=== PATIENT | female | born 1965 | race Caucasian/White ===

== ENCOUNTER → 2016-08-21 | Outpatient (CLI) | payer BC ==
[~2016-08-21] MED LIST: AMITRIPTYLINE50 MG PO; AZURETTE1 TAB PO; BUPROPION HCL150 M2 PO; CELEXA40 MG PO; CLINDAMYCIN300 MG PO; CYMBALTA 60MG60 MG PO; DURAGESIC25 MCG/HR TD; ETODOLAC400 MG PO; FENTANYL TR25 MCG/HR TD; FLONASE NASAL S16 GM NS; GABAPENTIN300 MG PO; LEVOTHYROXINE0.05 MG PO; LEVOXYL0.05 MG PO; LYRICA200 MG PO; NORCO 325 MG-51 TAB PO; SEROQUEL50 MG PO; ZOCOR 40MG40 MG PO
== END ==
LOC: BHSO 08:33
DX: F06.32 Mood disorder due to known physiological condition with major depressive-like episode (principal)

== ENCOUNTER → 2016-09-25 | Outpatient (CLI) | payer BC | LOC: BHSO 08:40 | DX: F33.41 Major depressive disorder, recurrent, in partial remission (principal) ==

== ENCOUNTER → 2016-11-22 | Outpatient (CLI) | payer BC | LOC: BHSO 08:32 | DX: F06.32 Mood disorder due to known physiological condition with major depressive-like episode (principal) ==

== ENCOUNTER → 2016-12-06 | Outpatient (CLI) | payer BC | LOC: MC.RAD 08:12 | DX: Z12.31 Encounter for screening mammogram for malignant neoplasm of breast (principal) ==

== ENCOUNTER → 2017-02-18 | Outpatient (CLI) | payer BC | LOC: BHSO 08:31 | DX: F06.32 Mood disorder due to known physiological condition with major depressive-like episode (principal) ==

== ENCOUNTER → 2017-04-01 | Outpatient (CLI) | payer BC | LOC: BHSO 08:13 | DX: F06.32 Mood disorder due to known physiological condition with major depressive-like episode (principal) ==

== ENCOUNTER → 2017-05-02 | Outpatient (CLI) | payer BC | LOC: BHSO 08:09 | DX: F06.32 Mood disorder due to known physiological condition with major depressive-like episode (principal) ==

== ENCOUNTER → 2017-05-09 | Outpatient (CLI) | payer BC | LOC: BHSO 08:39 | DX: F33.1 Major depressive disorder, recurrent, moderate (principal) ==

== ENCOUNTER → 2017-06-13 | Outpatient (CLI) | payer BC | LOC: BHSO 09:46 | DX: F33.2 Major depressive disorder, recurrent severe without psychotic features (principal) ==

== ENCOUNTER → 2017-06-27 | Outpatient (CLI) | payer BC | LOC: BHSO 08:10 | DX: F06.32 Mood disorder due to known physiological condition with major depressive-like episode (principal) ==

== ENCOUNTER → 2017-07-11 | Outpatient (CLI) | payer BC | LOC: BHSO 09:40 | DX: F33.2 Major depressive disorder, recurrent severe without psychotic features (principal) ==

== ENCOUNTER → 2017-07-25 | Outpatient (CLI) | payer BC | LOC: BHSO 09:39 | DX: F33.1 Major depressive disorder, recurrent, moderate (principal) ==

== ENCOUNTER → 2017-08-08 | Outpatient (CLI) | payer BC | LOC: BHSO 09:41 | DX: F33.2 Major depressive disorder, recurrent severe without psychotic features (principal) ==

== ENCOUNTER → 2017-08-29 | Outpatient (CLI) | payer BC | LOC: BHSO 08:38 | DX: F33.1 Major depressive disorder, recurrent, moderate (principal) ==

== ENCOUNTER → 2017-09-12 | Outpatient (CLI) | payer BC | LOC: BHSO 08:43 | DX: F41.1 Generalized anxiety disorder (principal) ==

== ENCOUNTER → 2017-09-26 | Outpatient (CLI) | payer BC | LOC: BHSO 08:29 | DX: F06.32 Mood disorder due to known physiological condition with major depressive-like episode (principal) | CPT/HCPCS: G0463 ==

== ENCOUNTER → 2017-10-10 | Outpatient (CLI) | payer BC | LOC: BHSO 08:46 | DX: F33.1 Major depressive disorder, recurrent, moderate (principal) ==

== ENCOUNTER → 2017-11-04 | Outpatient (CLI) | payer BC | LOC: BHSO 08:42 | DX: F33.1 Major depressive disorder, recurrent, moderate (principal) ==

== ENCOUNTER → 2017-11-28 | Outpatient (CLI) | payer BC | LOC: BHSO 09:50 | DX: F33.1 Major depressive disorder, recurrent, moderate (principal) ==

== ENCOUNTER → 2017-12-31 | Outpatient (CLI) | payer BC | LOC: BHSO 08:41 | DX: F33.1 Major depressive disorder, recurrent, moderate (principal) ==

== ENCOUNTER → 2018-01-13 | Outpatient (CLI) | payer BC | LOC: BHSO 09:09 | DX: F06.32 Mood disorder due to known physiological condition with major depressive-like episode (principal) | CPT/HCPCS: G0463 ==

== ENCOUNTER → 2018-01-23 | Outpatient (CLI) | payer BC | LOC: BHSO 08:42 | DX: F33.1 Major depressive disorder, recurrent, moderate (principal) ==

== ENCOUNTER 2018-02-17 09:30 | Inpatient (IN) | payer BC ==
[~2018-02-17] VITALS: Ht 162.6 cm; Wt 73.7 kg
[2018-02-17 09:53] LABS: HEMATOCRIT 37.9 % (37.0-47.0); HEMOGLOBIN 13.6 g/dl (12.5-16.0); MEAN CELL VOLUME 88 fl (80.0-100.0); MEAN CORPUSCULAR HEMOGLOBIN 32 pg (27.0-31.0); MEAN CORPUSCULAR HGB CONC 36 g/dl (33.0-37.0); MEAN PLATELET VOLUME 11.4 fl (7.4-10.4); PLATELET COUNT 224 K/mm3 (130-400); RED BLOOD COUNT 4.29 M/mm3 (4.10-5.30); REDCELL DISTRIBUTION WIDTH-CV 13.6 % (11.5-14.5)
[2018-02-17 10:08] LABS: ALBUMIN 4.1 gm/dL (3.5-5.0); BILIRUBIN,TOTAL 1.2 mg/dL (0.0-1.0); CALCIUM 9.4 mg/dL (8.4-10.2); CREATININE, serum 0.96 mg/dL (0.52-1.25); POTASSIUM 3.4 mmol/L (3.4-5.0); TOTAL PROTEIN 7.7 gm/dL (6.4-8.2)
[2018-02-17 10:11] LABS: BAND 13 % (0-10); LYMPHOCYTE 8 % (20.0-51.0); METAMYELOCYTE 1 % (0-0); NEUTROPHILS 72 % (42.0-75.2)
[2018-02-17 10:13] LABS: PLATELET ESTIMATE NORMAL (NORMAL)
[2018-02-17 10:24] LABS: C-REACTIVE PROTEIN 23.4 mg/dL (0.0-0.9)
[2018-02-17 11:35] LABS: COLLECTION METHOD CLEAN CATCH
[2018-02-17 11:46] LABS: BUDDING YEAST Present /hpf; MUCOUS Present /lpf; PH 5 (5-8); SQUAMOUS EPITHELIAL 0-2 /hpf; URINE APPEARANCE Cloudy; URINE BACTERIA None Seen /hpf; URINE BILIRUBIN Positive (NEGATIVE); URINE BLOOD 2+ (NEGATIVE); URINE COLOR Yellow; URINE GLUCOSE Negative (NEGATIVE); URINE KETONE Negative (NEGATIVE); URINE LEUKOCYTE ESTERASE 3+ (NEGATIVE); URINE NITRATE Positive (NEGATIVE); URINE PROTEIN(semi-quant) 2+ (NEGATIVE); URINE RBC >50 /hpf; URINE UROBILINOGEN >=4.0 mg/dL (NEGATIVE)
[2018-02-17 14:06] VITALS: BP 126/58; PULSE 95; TEMP 101.8
[2018-02-17] MEDS ORDERED: CYMBALTA 30MG30 MG PO (15:05)
[2018-02-17] MEDS ORDERED: [UNRECOGNIZED DRUG - OTHER] ×2 (15:05→15:06)
[2018-02-17] MEDS ORDERED: VIORELE 0.15 MG1 TAB PO (15:05)
[2018-02-17] MEDS ORDERED: DEXILANT60 MG PO (15:08)
[2018-02-17] MEDS ORDERED: LODINE400 MG (15:10)
[2018-02-17] MEDS ORDERED: DESYREL 100MG100 MG PO (15:10)
[2018-02-17] MEDS ORDERED: NEURONTIN300 MG/CAP PO (15:11)
[2018-02-17 16:40] VITALS: BP 100/65; PULSE 95; TEMP 98.6
[2018-02-17 19:13] VITALS: BP 111/65; PULSE 96; TEMP 98.5
[2018-02-17 23:45] VITALS: BP 86/57; PULSE 85; TEMP 99
[2018-02-18 06:13] VITALS: BP 114/87; TEMP 100.3
[2018-02-18 06:21] LABS: MEAN CELL VOLUME 89 fl (80.0-100.0); MEAN CORPUSCULAR HGB CONC 36 g/dl (33.0-37.0); MEAN PLATELET VOLUME 11.6 fl (7.4-10.4); PLATELET COUNT 143 K/mm3 (130-400); RED BLOOD COUNT 3.24 M/mm3 (4.10-5.30); REDCELL DISTRIBUTION WIDTH-CV 13.8 % (11.5-14.5)
[2018-02-18 06:22] LABS: HEMATOCRIT 28.9 % (37.0-47.0); HEMOGLOBIN 10.3 g/dl (12.5-16.0); MEAN CORPUSCULAR HEMOGLOBIN 32 pg (27.0-31.0)
[2018-02-18 06:33] LABS: CALCIUM 7.7 mg/dL (8.4-10.2); CREATININE, serum 0.95 mg/dL (0.52-1.25); POTASSIUM 3.2 mmol/L (3.4-5.0)
[2018-02-18 07:02] LABS: BAND 30 % (0-10); LYMPHOCYTE 5 % (20.0-51.0); NEUTROPHILS 63 % (42.0-75.2); PLATELET ESTIMATE NORMAL (NORMAL)
[2018-02-18 13:00] VITALS: BP 112/80; PULSE 89; TEMP 98.9
[2018-02-18 17:15] VITALS: BP 119/72; PULSE 95; TEMP 101.1
[2018-02-18 19:33] VITALS: BP 112/91; PULSE 82; TEMP 98.6
[2018-02-18 23:57] VITALS: BP 128/88; PULSE 93; TEMP 99.3
[2018-02-19 04:39] VITALS: BP 137/77; PULSE 91; TEMP 99.3
[2018-02-19 07:20] LABS: BASO % 0.2 % (0.0-2.0); EOS % 0.2 % (0-4.0); GRAN # 11.5 (1.4-6.5); GRAN % 86.2 % (42.2-75.2); HEMOGLOBIN 10.6 g/dl (12.5-16.0); LYMPH # 0.8 (1.2-3.4); LYMPH % 5.9 % (20.0-51.0); MEAN CELL VOLUME 91 fl (80.0-100.0); MEAN CORPUSCULAR HEMOGLOBIN 31 pg (27.0-31.0); MEAN CORPUSCULAR HGB CONC 34 g/dl (33.0-37.0); MEAN PLATELET VOLUME 11.7 fl (7.4-10.4); MONO # 0.9 (0.1-0.6); PLATELET COUNT 140 K/mm3 (130-400); RED BLOOD COUNT 3.44 M/mm3 (4.10-5.30)
[2018-02-19 07:21] LABS: HEMATOCRIT 31.3 % (37.0-47.0)
[2018-02-19 07:30] LABS: CALCIUM 7.8 mg/dL (8.4-10.2); CREATININE, serum 0.95 mg/dL (0.52-1.25); MAGNESIUM 1.8 mg/dL (1.6-2.3); POTASSIUM 3.6 mmol/L (3.4-5.0)
[2018-02-19 08:02] VITALS: BP 133/84; PULSE 82; TEMP 99.9
[2018-02-19 11:50] VITALS: BP 116/76; PULSE 84; TEMP 99.8
[2018-02-19 15:54] VITALS: BP 132/71; PULSE 77; TEMP 99.9
[2018-02-19 19:53] VITALS: BP 134/95; PULSE 97; TEMP 99.6
[2018-02-20] VITALS (7 sets, daily range): BP systolic 107–138; BP diastolic 57–91; PULSE 68–87; TEMP 98.2–100.2
[2018-02-20 07:45] LABS: BASO % 0.4 % (0.0-2.0); EOS # 0.1 (0.0-0.7); EOS % 0.5 % (0-4.0); GRAN # 8.7 (1.4-6.5); GRAN % 78.4 % (42.2-75.2); LYMPH # 1.1 (1.2-3.4); MEAN CELL VOLUME 90 fl (80.0-100.0); MEAN CORPUSCULAR HGB CONC 35 g/dl (33.0-37.0); MEAN PLATELET VOLUME 11.8 fl (7.4-10.4); MONO # 1.1 (0.1-0.6); MONO % 9.8 % (1.7-9.3); PLATELET COUNT 179 K/mm3 (130-400); RED BLOOD COUNT 3.17 M/mm3 (4.10-5.30); REDCELL DISTRIBUTION WIDTH-CV 14.3 % (11.5-14.5)
[2018-02-20 07:48] LABS: HEMATOCRIT 28.6 % (37.0-47.0); HEMOGLOBIN 9.9 g/dl (12.5-16.0); MEAN CORPUSCULAR HEMOGLOBIN 31 pg (27.0-31.0)
[2018-02-21 04:05] VITALS: BP 147/83; PULSE 77; TEMP 99.8
[2018-02-21 08:03] LABS: BASO # 0.1 (0.0-0.2); BASO % 0.5 % (0.0-2.0); EOS # 0.2 (0.0-0.7); EOS % 1.7 % (0-4.0); GRAN # 7.1 (1.4-6.5); GRAN % 69.9 % (42.2-75.2); LYMPH # 1.3 (1.2-3.4); LYMPH % 13.1 % (20.0-51.0); MEAN CELL VOLUME 93 fl (80.0-100.0); MEAN CORPUSCULAR HGB CONC 34 g/dl (33.0-37.0); MEAN PLATELET VOLUME 11.5 fl (7.4-10.4); MONO # 1.4 (0.1-0.6); MONO % 13.4 % (1.7-9.3); PLATELET COUNT 211 K/mm3 (130-400); RED BLOOD COUNT 3.12 M/mm3 (4.10-5.30); REDCELL DISTRIBUTION WIDTH-CV 14.6 % (11.5-14.5)
[2018-02-21 08:06] LABS: HEMATOCRIT 28.9 % (37.0-47.0); HEMOGLOBIN 9.7 g/dl (12.5-16.0); MEAN CORPUSCULAR HEMOGLOBIN 31 pg (27.0-31.0)
[2018-02-21 08:47] VITALS: BP 129/102; PULSE 70; TEMP 99
[2018-02-21 13:03] VITALS: BP 107/76; PULSE 83; TEMP 98.3
[2018-02-21 16:33] VITALS: BP 125/82; PULSE 75; TEMP 99.2
[2018-02-21 19:26] VITALS: BP 128/92; PULSE 74; TEMP 99.4
[2018-02-21 23:40] VITALS: BP 130/88; PULSE 80; TEMP 99.5
[2018-02-22 04:26] VITALS: BP 122/77; PULSE 71; TEMP 98.9
[2018-02-22 06:17] LABS: MEAN CELL VOLUME 93 fl (80.0-100.0); MEAN CORPUSCULAR HGB CONC 33 g/dl (33.0-37.0); MEAN PLATELET VOLUME 11.4 fl (7.4-10.4); PLATELET COUNT 258 K/mm3 (130-400); RED BLOOD COUNT 3.03 M/mm3 (4.10-5.30); REDCELL DISTRIBUTION WIDTH-CV 14.6 % (11.5-14.5)
[2018-02-22 06:18] LABS: HEMATOCRIT 28.2 % (37.0-47.0); HEMOGLOBIN 9.3 g/dl (12.5-16.0); MEAN CORPUSCULAR HEMOGLOBIN 31 pg (27.0-31.0)
[2018-02-22 06:29] LABS: CALCIUM 8.3 mg/dL (8.4-10.2); CREATININE, serum 0.9 mg/dL (0.52-1.25); POTASSIUM 3.8 mmol/L (3.4-5.0)
[2018-02-22 07:25] VITALS: BP 132/84; PULSE 75; TEMP 98.4
[2018-02-22 11:38] VITALS: BP 136/72; PULSE 68; TEMP 98.6
[2018-02-22 16:08] VITALS: BP 125/89; PULSE 64; TEMP 98.4
[2018-02-22 20:01] VITALS: BP 134/78; PULSE 66; TEMP 98.8
[2018-02-23 00:02] VITALS: BP 130/68; PULSE 70; TEMP 98.6
[2018-02-23 04:28] VITALS: BP 122/60; PULSE 68; TEMP 98.2
[2018-02-23 08:27] VITALS: BP 149/86; PULSE 94; TEMP 97.9
[2018-02-23 11:40] VITALS: BP 128/60; PULSE 105; TEMP 97.9
[2018-02-23] MEDS ORDERED: NS INT FLUSH 1010 ML IV (13:27)
[2018-02-23] MEDS ORDERED: INVANZ INJ1 G/VIAL IV (13:27)
[2018-02-24] MEDS ORDERED: SYNTHROID0.1 MG/TAB PO (15:40)
== END 2018-02-23 18:19 | disposition home or self-care (01) | DRG 872 ==
LOC: COL.ER 09:30 → MEDICAL 12:45
PROVIDERS: Internal Medicine; Physician Assistant
PROC: 02HV33Z Insertion of Infusion Device into Superior Vena Cava, Percutaneous Approach (ICD-10-PCS; principal; 2018-02-23)
DX: A41.51 Sepsis due to Escherichia coli [E. coli] (principal); N10 Acute pyelonephritis; B96.20 Unspecified Escherichia coli [E. coli] as the cause of diseases classified elsewhere; M79.7 Fibromyalgia; G89.29 Other chronic pain; E87.6 Hypokalemia
CPT/HCPCS: 99232-AI; 99233-AI; 99239; C1751; J0696; J0780; J1335; J1650; J1885; J2060; J2185; J2270; J2405; J7030; Q9967

== ENCOUNTER 2018-02-28 13:50 | Outpatient (RCR) | payer BC ==
[2018-02-24 15:45] VITALS: BP 133/84; PULSE 72; TEMP 97.8
[2018-02-25 14:00] VITALS: BP 119/79; PULSE 71; TEMP 97.5
[2018-02-26 13:54] VITALS: BP 100/64; PULSE 71; TEMP 97.5
[2018-02-27 14:06] VITALS: BP 106/69; PULSE 74; TEMP 97.4
[~2018-02-28] VITALS: Ht 162.6 cm; Wt 75.0 kg
[~2018-02-28 13:50] MED LIST changes: +CYMBALTA 30MG30 MG PO; +DESYREL 100MG100 MG PO; +DEXILANT60 MG PO; +INVANZ INJ1 G/VIAL IV; +LODINE400 MG; +NEURONTIN300 MG/CAP PO; +NS INT FLUSH 1010 ML IV; +SYNTHROID0.1 MG/TAB PO; +VIORELE 0.15 MG1 TAB PO; +[UNRECOGNIZED DRUG - OTHER]
[2018-03-02 13:50] VITALS: BP 125/72; PULSE 80; TEMP 98
[2018-03-03 14:03] VITALS: BP 95/59; PULSE 77; TEMP 98.4
[2018-03-04 13:48] VITALS: BP 105/61; PULSE 79; TEMP 97.6
[2018-03-05 14:17] VITALS: BP 98/71; PULSE 73; TEMP 98
[2018-03-06 14:00] VITALS: BP 115/98; PULSE 74; TEMP 97.8
[2018-03-09 13:51] VITALS: BP 110/74; PULSE 69; TEMP 98.8
== END 2018-03-09 14:51 | disposition home or self-care (01) ==
LOC: EUO 14:00
DX: Z45.2 Encounter for adjustment and management of vascular access device (principal); Z95.9 Presence of cardiac and vascular implant and graft, unspecified
CPT/HCPCS: J1335

== ENCOUNTER → 2018-03-20 | Outpatient (CLI) | payer BC | LOC: BHSO 08:29 | DX: F06.32 Mood disorder due to known physiological condition with major depressive-like episode (principal) | CPT/HCPCS: G0463 ==

== ENCOUNTER → 2018-05-06 | Outpatient (CLI) | payer BC, OTHER | LOC: MHCPAIN 12:19 | DX: G89.29 Other chronic pain (principal); M47.817 Spondylosis without myelopathy or radiculopathy, lumbosacral region; M54.16 Radiculopathy, lumbar region; M53.3 Sacrococcygeal disorders, not elsewhere classified; M41.9 Scoliosis, unspecified | CPT/HCPCS: G0463 ==

== ENCOUNTER → 2018-05-14 | Outpatient (CLI) | payer BC, OTHER | LOC: MHCPAIN 09:25 | DX: M47.817 Spondylosis without myelopathy or radiculopathy, lumbosacral region (principal); M54.16 Radiculopathy, lumbar region | CPT/HCPCS: J1040; Q9967 ==

== ENCOUNTER → 2018-05-25 | Outpatient (CLI) | payer BC, OTHER | LOC: MHCPAIN 08:48 | DX: G89.29 Other chronic pain (principal); M47.817 Spondylosis without myelopathy or radiculopathy, lumbosacral region; M54.16 Radiculopathy, lumbar region; M53.3 Sacrococcygeal disorders, not elsewhere classified; M41.9 Scoliosis, unspecified | CPT/HCPCS: G0463 ==

== ENCOUNTER → 2018-06-26 | Outpatient (CLI) | payer BC, OTHER | LOC: BHSO 08:48 | DX: F06.32 Mood disorder due to known physiological condition with major depressive-like episode (principal) | CPT/HCPCS: G0463 ==

== ENCOUNTER → 2018-08-24 | Outpatient (CLI) | payer BC, OTHER | LOC: MHCPAIN 08:45 | DX: G89.29 Other chronic pain (principal); M47.817 Spondylosis without myelopathy or radiculopathy, lumbosacral region; M54.16 Radiculopathy, lumbar region; M53.3 Sacrococcygeal disorders, not elsewhere classified; M41.9 Scoliosis, unspecified | CPT/HCPCS: G0463 ==

== ENCOUNTER → 2018-08-27 | Outpatient (CLI) | payer BC, OTHER | LOC: MHCPAIN 08:43 | DX: M47.817 Spondylosis without myelopathy or radiculopathy, lumbosacral region (principal); M54.16 Radiculopathy, lumbar region | CPT/HCPCS: J1100; Q9967 ==

== ENCOUNTER → 2018-10-15 | Outpatient (CLI) | payer BC, OTHER | LOC: BHSO 08:40 | DX: F06.32 Mood disorder due to known physiological condition with major depressive-like episode (principal) | CPT/HCPCS: G0463 ==

== ENCOUNTER → 2018-11-23 | Outpatient (CLI) | payer BC, OTHER | LOC: MHCPAIN 09:23 | DX: G89.29 Other chronic pain (principal); M47.817 Spondylosis without myelopathy or radiculopathy, lumbosacral region; M54.16 Radiculopathy, lumbar region; M53.3 Sacrococcygeal disorders, not elsewhere classified; M41.9 Scoliosis, unspecified | CPT/HCPCS: G0463 ==

== ENCOUNTER → 2018-11-26 | Outpatient (CLI) | payer BC, OTHER | LOC: MHCPAIN 10:50 | DX: M47.817 Spondylosis without myelopathy or radiculopathy, lumbosacral region (principal); M54.16 Radiculopathy, lumbar region | CPT/HCPCS: J1100; Q9967 ==

== ENCOUNTER → 2018-12-07 | Outpatient (CLI) | payer BC | LOC: MC.RAD 10:58 | DX: Z12.31 Encounter for screening mammogram for malignant neoplasm of breast (principal) ==

== ENCOUNTER → 2018-12-08 | Outpatient (CLI) | payer BC | LOC: MHCPAIN 08:05 | DX: G89.29 Other chronic pain (principal); M47.817 Spondylosis without myelopathy or radiculopathy, lumbosacral region; M54.16 Radiculopathy, lumbar region; M53.3 Sacrococcygeal disorders, not elsewhere classified; M41.9 Scoliosis, unspecified | CPT/HCPCS: G0463 ==

== ENCOUNTER → 2018-12-14 | Outpatient (CLI) | payer BC | LOC: MHCPAIN 10:45 | DX: M47.817 Spondylosis without myelopathy or radiculopathy, lumbosacral region (principal); M54.16 Radiculopathy, lumbar region | CPT/HCPCS: J1040; Q9967 ==

== ENCOUNTER → 2019-03-30 | Outpatient (CLI) | payer BC | LOC: MHCPAIN 08:44 | DX: G89.29 Other chronic pain (principal); M47.817 Spondylosis without myelopathy or radiculopathy, lumbosacral region; M54.16 Radiculopathy, lumbar region; M53.3 Sacrococcygeal disorders, not elsewhere classified | CPT/HCPCS: G0463 ==

== ENCOUNTER → 2019-04-08 | Outpatient (CLI) | payer BC | LOC: MHCPAIN 10:15 | DX: M47.817 Spondylosis without myelopathy or radiculopathy, lumbosacral region (principal); M54.16 Radiculopathy, lumbar region | CPT/HCPCS: J1100; Q9967 ==

== ENCOUNTER → 2019-04-16 | Outpatient (CLI) | payer BC | LOC: BHSO 08:10 | DX: F06.32 Mood disorder due to known physiological condition with major depressive-like episode (principal) | CPT/HCPCS: G0463 ==

== ENCOUNTER → 2019-07-27 | Outpatient (CLI) | payer BC | LOC: MHCPAIN 12:56 | DX: M47.817 Spondylosis without myelopathy or radiculopathy, lumbosacral region (principal); M54.16 Radiculopathy, lumbar region | CPT/HCPCS: G0463 ==

== ENCOUNTER → 2019-08-12 | Outpatient (CLI) | payer BC | LOC: MHCPAIN 13:46 | DX: M51.37 Other intervertebral disc degeneration, lumbosacral region (principal); M54.17 Radiculopathy, lumbosacral region ==

== ENCOUNTER → 2019-08-25 | Outpatient (CLI) | payer BC | LOC: MHCPAIN 07:44 | DX: G89.29 Other chronic pain (principal); M53.3 Sacrococcygeal disorders, not elsewhere classified | CPT/HCPCS: G0463 ==

== ENCOUNTER → 2019-08-26 | Outpatient (CLI) | payer BC | LOC: MHCPAIN 13:58 | DX: M51.37 Other intervertebral disc degeneration, lumbosacral region (principal); M54.5 Low back pain ==

== ENCOUNTER → 2019-09-07 | Outpatient (CLI) | payer BC | LOC: MHCPAIN 13:44 | DX: M47.817 Spondylosis without myelopathy or radiculopathy, lumbosacral region (principal); M53.3 Sacrococcygeal disorders, not elsewhere classified | CPT/HCPCS: G0463 ==

== ENCOUNTER → 2019-09-23 | Outpatient (CLI) | payer BC | LOC: MHCPAIN 13:13 | DX: M54.5 Low back pain (principal) | CPT/HCPCS: J1100; J2250; J3010 ==

== ENCOUNTER → 2019-10-15 | Outpatient (CLI) | payer BC | LOC: BHSO 08:12 | DX: F06.32 Mood disorder due to known physiological condition with major depressive-like episode (principal) | CPT/HCPCS: G0463 ==

== ENCOUNTER → 2020-01-12 | Outpatient (CLI) | payer BC | LOC: MHCPAIN 09:29 | DX: M47.817 Spondylosis without myelopathy or radiculopathy, lumbosacral region (principal); M54.5 Low back pain; M53.3 Sacrococcygeal disorders, not elsewhere classified; M54.16 Radiculopathy, lumbar region; G89.29 Other chronic pain | CPT/HCPCS: G0463 ==

== ENCOUNTER → 2020-04-12 | Outpatient (CLI) | payer BC | LOC: MHCPAIN 08:47 | DX: M47.817 Spondylosis without myelopathy or radiculopathy, lumbosacral region (principal); M54.5 Low back pain; G89.29 Other chronic pain; M54.16 Radiculopathy, lumbar region | CPT/HCPCS: G0463 ==

== ENCOUNTER → 2020-04-13 | Outpatient (CLI) | payer BC | LOC: MHCPAIN 13:59 | DX: M47.817 Spondylosis without myelopathy or radiculopathy, lumbosacral region (principal); M54.16 Radiculopathy, lumbar region | CPT/HCPCS: J1100; Q9967 ==

== ENCOUNTER → 2020-04-21 | Outpatient (CLI) | payer BC | LOC: BHSO 08:51 | DX: F06.32 Mood disorder due to known physiological condition with major depressive-like episode (principal) | CPT/HCPCS: G0463 ==

== ENCOUNTER 2020-12-28 07:12 | Day surgery (SDC) | payer BC ==
[~2020-12-28] VITALS: Ht 157.5 cm; Wt 82.3 kg
[~2020-12-28 07:12] MED LIST changes: -ETODOLAC400 MG PO; +LODINE400 MG PO
[2020-12-28 07:36] VITALS: BP 107/78; PULSE 80; TEMP 98.1
[2020-12-28] MEDS ORDERED: NEURONTIN800 MG/TAB PO (07:59)
[2020-12-28] MEDS ORDERED: LAMICTAL 25MG T25 MG PO (07:59)
[2020-12-28] MEDS ORDERED: SYNTHROID0.125 MG/T PO (08:00)
[2020-12-28 09:15] VITALS: BP 111/81; PULSE 73; TEMP 97.5
[2020-12-28 09:30] VITALS: BP 112/96; PULSE 67
[2020-12-28 09:45] VITALS: BP 112/89; PULSE 68
--- NOTE | 2020-12-28 10:35 | NUR ---
PT RETURNED TO [facility] PER CART. PT WAS AWAKE AND ORIENTED. DENIES PAIN OR NAUSEA AT THIS TIME. LUNGS CLEAR AND DIMINISHED, DENIES SHORTNESS OF BREATH. HRR, BOWEL SHOUNDS PRESENT AND HYPOACTIVE. REQUEST BLUEBERRY MUFFINA WITH BUTTER AND COFFEE WITH CREAMER. IVF FLOWING PATENT INTO RIGHT HAND AND WAS PATENT. WILL CONT TO MONITOR PROGRESS.
--- NOTE | 2020-12-28 10:39 | NUR ---
PT TOLERATING FOOD AND FLUIDS WITHOUT DIFFICULTY AND/OR NAUSEA. TEN HARRIS CALLED THE NURSES STATION TO CHECK ON THE PATIENT AND REQUSTED THAT WE CALL HIM WHEN SHE IS READY. WILL CONT TO MONITOR AND PREPARE FOR DISCHARGE.
--- NOTE | 2020-12-28 10:41 | NUR ---
PT IS ALERT AND ORIENTATED, WENT OVER DISCHARGE INSTRUCTIONS WITH HER. PT DENIES QUESTIONS. IV WAS DC'D WITHOUT DIFFICULTY. PT CALLED HER BOYFRIEND, TEN TO PICK HER UP. PT SIGNED DISMISSAL INSTRUCTIONS AND WAS TAKEN BY WC TO THE THE PATIENT ENTRANCE. PT DISCHARGED TO [facility]ENKathrine, TEN'S VEHICLE. TEN WAS DRIVING THE CAR.
== END 2020-12-28 10:05 | disposition home or self-care (01) ==
LOC: SDCO 07:12
DX: D12.5 Benign neoplasm of sigmoid colon (principal); M48.062 Spinal stenosis, lumbar region with neurogenic claudication; M79.7 Fibromyalgia; F33.41 Major depressive disorder, recurrent, in partial remission; Z79.891 Long term (current) use of opiate analgesic; Z79.899 Other long term (current) drug therapy
CPT/HCPCS: J2704; J3010; J7120

== ENCOUNTER → 2021-11-21 | Outpatient (CLI) | payer MEDICAID ==
[~2021-11-21] MED LIST changes: +LAMICTAL 25MG T25 MG PO; +NEURONTIN800 MG/TAB PO; +SYNTHROID0.125 MG/T PO
== END ==
LOC: COL.RAD 07:03
DX: M48.062 Spinal stenosis, lumbar region with neurogenic claudication (principal); M48.07 Spinal stenosis, lumbosacral region